=== PATIENT | male | born 2000 | race Caucasian/White ===

== ENCOUNTER 2024-03-16 18:46 | Emergency (ER) | payer BC ==
[~2024-03-16] VITALS: Ht 182.9 cm; Wt 90.0 kg
[2024-03-16] MEDS: proparacaine 0.5% ophthalmic drops 15ml LEFTEYE ONE (19:05)
[2024-03-16] MEDS: erythromycin ophthalmic ointment 1gm tube EACHEYE ONE (22:15)
[2024-03-16] MEDS: proparacaine 0.5% ophthalmic drops 15ml EACHEYE ONE (22:46)
[2024-03-16] MEDS: fluorescein sod 1mg ophthalmic strip EACHEYE ONE (22:46)
[2024-03-16 23:18] VITALS: BP 132/59; PULSE 62; RESP 16; O2SAT 99
== END 2024-03-16 23:19 | disposition home or self-care (01) ==
LOC: ER 18:47
DX: T15.02XA Foreign body in cornea, left eye, initial encounter (principal); W44.8XXA Other foreign body entering into or through a natural orifice, initial encounter; Y93.89 Activity, other specified; Y92.89 Other specified places as the place of occurrence of the external cause; Y99.8 Other external cause status
CPT/HCPCS: 65220; 99284